=== PATIENT | female | born 1990 | race Caucasian/White ===

== ENCOUNTER 2016-10-29 08:30 | Emergency (ER) | payer BC ==
[~2016-10-29] VITALS: Ht 170.2 cm; Wt 121.1 kg
--- NOTE | 2016-10-29 08:51 | NUR ---
BIB SELF C/O NAUSEA, EPIGASTRIC PAIN X 2 DAYS. PT C/O SOFT STOOL, NAD NOTED, MD ALEJANDRINA AT BEDSIDE FOR EVAL.
--- NOTE | 2016-10-29 08:52 | NUR ---
URINE SAMPLE COLLECTED.
[2016-10-29] MEDS ORDERED: ONDANSETRON HCL/PF 4 MG/2 ML VIAL ONE (08:57)
[2016-10-29] MEDS ORDERED: DICYCLOMINE HCL INJ 20 MG/2 ML AMPUL IM ONE ×2 (08:59→09:00)
[2016-10-29] MEDS ORDERED: KETOROLAC TROMETHAMINE INJ 30 MG/ML VIAL IV ONE (09:00)
[2016-10-29] MEDS ORDERED: IV NS 0.9% 1,000 ML BAG IV ONE (09:00)
[2016-10-29] MEDS ORDERED: ONDANSETRON HCL/PF 4 MG/2 ML VIAL IVP ONE (09:00)
[2016-10-29] MEDS ORDERED: KETOROLAC TROMETHAMINE INJ 30 MG/ML VIAL ONE (09:19)
[2016-10-29 10:27] VITALS: BP 132/89
--- NOTE | 2016-10-29 10:28 | NUR ---
Patient discharged to home in stable condition. Written and verbal after care instructions given. Patient verbalizes understanding of instruction.IV removed. Catheter intact and site benign. Pressure and 4x4 applied to site. No bleeding noted. Prescription given.
== END 2016-10-29 10:29 | disposition home or self-care (01) ==
LOC: ER 08:31
DX: R10.33 Periumbilical pain (principal); R19.7 Diarrhea, unspecified; J45.909 Unspecified asthma, uncomplicated
CPT/HCPCS: 84703-TC; A4606; J0500; J1885; J2405; J7030; Z7610